=== PATIENT | male | born 1970 ===

== ENCOUNTER 2018-06-06 12:41 | Outpatient (CLI) | payer OTHER ==
[~2018-06-06] VITALS: Ht 180.3 cm; Wt 98.0 kg
== END 2018-06-06 12:55 | disposition home or self-care (01) ==
LOC: OFIC 805 12:41
DX: R42 Dizziness and giddiness (principal)

== ENCOUNTER 2018-07-14 09:44 | Outpatient (CLI) | payer OTHER ==
[~2018-07-14] VITALS: Ht 152.4 cm; Wt 98.0 kg
== END 2018-07-14 10:00 | disposition home or self-care (01) ==
LOC: OFIC 805 09:44
DX: R42 Dizziness and giddiness (principal); H81.49 Vertigo of central origin, unspecified ear